=== PATIENT | female | born 1990 | race Caucasian/White ===

== ENCOUNTER 2024-05-11 14:55 | Emergency (ER) | payer OTHER ==
[~2024-05-11] VITALS: Ht 152.4 cm; Wt 52.6 kg
[2024-05-11 15:08] VITALS: BP 116/65; PULSE 112; RESP 16; TEMP 98.4; O2SAT 100
[2024-05-11 16:09] LABS: BASOPHILS # (AUTO) 0.1 K/uL (0.00-0.22); BASOPHILS % (AUTO) 1.7 % (0.0-2.0); EOSINOPHILS # (AUTO) 0.9 K/uL (0-0.4); HEMATOCRIT 22.1 % (36-48); LYMPHOCYTES # (AUTO) 1.6 K/uL (2.5-16.5); LYMPHOCYTES % (AUTO) 29.1 % (20.5-51.1); MEAN CORPUSCULAR HEMOGLOBIN 16 pg (27-31); MEAN CORPUSCULAR HGB CONC 29 g/dL (33-37); MEAN CORPUSCULAR VOLUME 56.3 fL (80-94); MONOCYTES # (AUTO) 0.3 K/uL (0.8-1.0); MONOCYTES % (AUTO) 5.5 % (1.7-9.3); NEUTROPHILS # (AUTO) 2.6 K/uL (1.8-7.7); NEUTROPHILS % (AUTO) 47.7 % (42.2-75.2); PLATELET COUNT (AUTO) 146 K/uL (140-450); RED BLOOD CELL COUNT(AUTO) 3.93 MIL/uL (4.20-5.40); RED CELL DISTRIBUTION WIDTH 19.9 % (11.6-13.7); WHITE BLOOD COUNT (AUTO) 5.3 K/uL (4.8-10.8)
[2024-05-11 16:16] LABS: HEMOGLOBIN 6.3 g/dL (12.0-16.0)
[2024-05-11 16:22] LABS: ANION GAP 12.6 (8-16); CALCIUM 8.4 mg/dL (8.5-10.1); CARBON DIOXIDE 26.6 mmol/L (21-32); CREATININE 0.7 mg/dL (0.6-1.3); POTASSIUM 3.2 mmol/L (3.5-5.1)
[2024-05-11 20:15] VITALS: O2SAT 100
[2024-05-11 22:38] VITALS: O2SAT 98
[2024-05-12 00:39] VITALS: O2SAT 98
[2024-05-12 02:05] VITALS: BP 114/72; PULSE 110; RESP 16; TEMP 98.4
[2024-05-12] MEDS: LORazepam 2 MG/ML VIAL IVP ONE (02:33)
[2024-05-12 03:21] VITALS: O2SAT 98
== END 2024-05-12 03:48 | disposition home or self-care (01) ==
LOC: MED 14:55
DX: D64.9 Anemia, unspecified (principal)
CPT/HCPCS: 36415; 36430; 80048; 81025; 85025; 86886; 86900; 86901; 86920; 96374; 99285; J2060; P9016